=== PATIENT | female | born 2000 | race Caucasian/White ===

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

== ENCOUNTER → 2019-04-12 | Outpatient (CLI) | payer BC ==
[~2019-04-12] MED LIST changes: +NORCO 325 MG-51 TAB PO
== END ==
LOC: COL.RAD 12:11
DX: M79.671 Pain in right foot (principal); G89.29 Other chronic pain